=== PATIENT | male | born 1975 | race Caucasian/White ===

== ENCOUNTER 2020-10-11 05:48 | Emergency (ER) | payer OTHER ==
[2020-10-11] MEDS ORDERED: NA CHLORIDE 0.9% 1,000 ML ONE (07:19)
[2020-10-11] MEDS ORDERED: DIPHENHYDRAMINE 50 MG/ML VIAL ONE (07:19)
[2020-10-11] MEDS ORDERED: METOCLOPRAMIDE 10 MG/2mL INJ ONE (07:19)
[2020-10-11 07:26] LABS: Absolute Lymphocytes (CBC) 1.1 K/uL (0.7-4.9); Basophils % 0.9 % (0-1.3); Lymphocytes % 20.9 % (15.3-44.8); MPV 10.5 fL (7.6-11.3); RBC Red Blood Cell Count 5.17 M/uL (4.33-5.43)
[2020-10-11 07:39] LABS: ALT/SGPT 60 U/L (12-78); AST/SGOT 24 U/L (15-37); Alkaline Phosphatase 92 U/L (45-117); BUN Blood Urea Nitrogen 12 mg/dL (7-18); Bicarbonate 29 mmol/L (21-32); Bilirubin Direct < 0.1 mg/dL (0-0.2); Bilirubin Total 0.5 mg/dL (0.2-1.0); Glucose Level 96 mg/dL (74-106); Potassium 4.1 mmol/L (3.5-5.1); Sodium Level 142 mmol/L (136-145)
[2020-10-11 07:53] LABS: Protime INR 0.99
--- NOTE | 2020-10-11 08:03 | RAD REPORT ---
EXAM DESCRIPTION: CT - CTHCSPWOC - 10/11/2020 7:35 am CLINICAL HISTORY: PAIN COMPARISON: No comparisons TECHNIQUE: Axial 5 mm thick images of the head were obtained. Axial 2 mm thick images of the cervic al spine were obtained with sagittal and coronal reconstruction images generated and reviewed. All CT scans are performed using dose optimization technique as appropriate and may include automated exposure control or mA/KV adjustment according to patient size. FINDINGS: No intracranial hemorrhage, mass, edema or acute intracranial finding. No suspicion for ac pa infarction. No extra-axial fluid collections. Mastoid air cells, middle ears and paranasal sinuse s are clear. No external auditory canal abnormality seen. No globe or orbit abnormality seen. Cervical body height and alignment are normal. Mild disc space narrowing at C4-5 and C6-7. Posterior endplate spurring and uncovertebral joint hypertrophy changes are present at multiple levels. Foramin al stenosis changes are present at C3-4, C4-5, C6-7 and to a slightly lesser degree C5-6. Canal is bruce rderline stenotic spanning C4-C6. No fracture or acute bony abnormality. Central canal detail is inh erently limited. No paraspinal mass or hematoma. A few small nonspecific cervical lymph nodes are present. IMPRESSION: No intracranial abnormality seen. Mastoid air cells and middle ears are clear. Advanced for age cervical spine degenerative change with multilevel borderline spinal stenosis and mu ltilevel bony foraminal stenosis.
--- NOTE | 2020-10-11 08:38 | EDPHYS ---
Physician Documentation [facility] Name: Anjel Quintana Age: 45 yrs Sex: Male : 1975 Arrival Date: 10/11/2020 Time: 06:06 Bed 6 Private MD: ED Physician Indra Chacon HPI: 10/11 07:08 This 45 yrs old Male presents to ER via Ambulatory with complaints of Neck Injury. mh7 07:08 The patient or guardian complains of pain, that is acute. The symptoms are located at mh7 the neck. Onset: The symptoms/episode began/occurred 5 day(s) ago. Context: The problem was sustained at an unknown location, The neck injury/problem resulted from from unknown cause. Associated signs and symptoms: Pertinent positives: headache, nausea, photphobia. 07:09 Associated signs and symptoms: Pertinent positives: blurry vision, left ear pain, mh7 Pertinent negatives: chills, constipation, fever, bladder incontinence, bowel incontinence, numbness, tingling, vomiting, weakness. The pain radiates to the scalp. Modifying factors: The symptoms are alleviated by nothing. the symptoms are aggravated by movement. Severity of symptoms: At their worst the symptoms were moderate, 3 day(s) ago, in the emergency department the symptoms are unchanged. Historical: - Allergies: 06:09 No Known Allergies; jb4 - Home Meds: 06:09 Tessalon Perles Oral [Active]; jb4 - PMHx: 06:09 Traumatic Brain Injury; Migraines; jb4 - PSHx: 06:09 None; jb4 - Immunization history:: Adult Immunizations up to date. - Social history:: Smoking status: Patient denies any tobacco usage or history of. Patient/guardian denies using alcohol, street drugs. ROS: 07:09 Constitutional: Negative for fever, chills, and weight loss, Cardiovascular: Negative mh7 for chest pain, palpitations, and edema, Respiratory: Negative for shortness of breath, cough, wheezing, and pleuritic chest pain, Back: Negative for injury and pain, : Negative for injury, bleeding, discharge, and swelling, MS/Extremity: Negative for injury and deformity, Skin: Negative for injury, rash, and discoloration, Psych: Negative for depression, anxiety, suicide ideation, homicidal ideation, and hallucinations, Allergy/Immunology: Negative for hives, rash, and allergies, Endocrine: Negative for neck swelling, polydipsia, polyuria, polyphagia, and marked weight changes, Hematologic/Lymphatic: Negative for swollen nodes, abnormal bleeding, and unusual bruising. Exam: 07:09 Constitutional: This is a well developed, well nourished patient who is awake, alert, mh7 and in no acute distress. Head/Face: Normocephalic, atraumatic. Eyes: Pupils equal round and reactive to light, extra-ocular motions intact. Lids and lashes normal. Conjunctiva and sclera are non-icteric and not injected. Cornea within normal limits. Periorbital areas with no swelling, redness, or edema. ENT: Nares patent. No nasal discharge, no septal abnormalities noted. Tympanic membranes are normal and external auditory canals are clear. Oropharynx with no redness, swelling, or masses, exudates, or evidence of obstruction, uvula midline. Mucous membranes moist. 07:09 Chest/axilla: Normal chest wall appearance and motion. Nontender with no deformity. No lesions are appreciated. Cardiovascular: Regular rate and rhythm with a normal S1 and S2. No gallops, murmurs, or rubs. Normal PMI, no JVD. No pulse deficits. Respiratory: Lungs have equal breath sounds bilaterally, clear to auscultation and percussion. No rales, rhonchi or wheezes noted. No increased work of breathing, no retractions or nasal flaring. Abdomen/GI: Soft, non-tender, with normal bowel sounds. No distension or tympany. No guarding or rebound. No evidence of tenderness throughout. Back: No spinal tenderness. No costovertebral tenderness. Full range of motion. Skin: Warm, dry with normal turgor. Normal color with no rashes, no lesions, and no evidence of cellulitis. MS/ Extremity: Pulses equal, no cyanosis. Neurovascular intact. Full, normal range of motion. Neuro: Awake and alert, GCS 15, oriented to person, place, time, and situation. Cranial nerves II-XII grossly intact. Motor strength 5/5 in all extremities. Sensory grossly intact. Cerebellar exam normal. Normal gait. Psych: Awake, alert, with orientation to person, place and time. Behavior, mood, and affect are within normal limits. 07:09 Neck: External neck: tenderness, that is moderate, of the occiput, left mid cervical area and left trapezius, C-spine: appears grossly normal, no vertebral tenderness, no crepitus, Thyroid: appears normal, Trachea: is midline with no obvious abnormalities, ROM/movement: limited range of motion, that is mild, when rotating to the left, Meningeal signs: are not present, nuchal rigidity, is not appreciated, Lymph nodes: no appreciated lymphadenopathy. Vital Signs: 06:09 BP 134 / 106; Pulse 81; Resp 16; Temp 98.4(O); Pulse Ox 97% on R/A; Weight 95.25 kg jb4 (R); Height 6 ft. 2 in. (187.96 cm) (R); Pain 10/10; 07:30 BP 138 / 103; Pulse 82; Resp 15; Pulse Ox 100% on R/A; Pain 8/10; hb 08:30 BP 140 / 98; Pulse 80; Resp 16; Pulse Ox 99% on R/A; hb 06:09 Body Mass Index 26.96 (95.25 kg, 187.96 cm) jb4 MDM: 07:13 Transition of care: After a detail discussion of the patient's case, care is mh7 transferred to Loreto rCuz MD. 08:35 Differential diagnosis: arthritis, cervical strain, Osteoarthritis torticollis. Data ma2 reviewed: vital signs, nurses notes. Counseling: I had a detailed discussion with the patient and/or guardian regarding: the historical points, exam findings, and any diagnostic results supporting the discharge/admit diagnosis, the presence of at least one elevated blood pressure reading (>120/80) during this emergency department visit, the need for outpatient follow up. Response to treatment: the patient's symptoms have markedly improved after treatment. 08:37 Patient medically screened. ma2 10/11 06:52 Order name: CBC with Diff; Complete Time: 08:17 10/11 06:52 Order name: Basic Metabolic Panel; Complete Time: 08:17 10/11 06:52 Order name: Protime (+inr); Complete Time: 08:17 10/11 06:52 Order name: Ptt, Activated; Complete Time: 08:17 10/11 06:52 Order name: LFT's; Complete Time: 08:17 10/11 06:52 Order name: CT Head C Spine; Complete Time: 08:17 mh7 Administered Medications: 07:21 Drug: Benadryl (diphenhydrAMINE) 50 mg Route: IVP; Site: right antecubital; hb 08:08 Follow up: Response: No adverse reaction hb 07:22 Drug: Reglan (metoCLOPramide) 10 mg Route: IVP; Site: right antecubital; hb 08:09 Follow up: Response: No adverse reaction hb 07:23 Drug: NS 0.9% 1000 ml Route: IV; Rate: 1000 ml; Site: right antecubital; hb 08:40 Follow up: Response: No adverse reaction; IV Status: Completed infusion; IV Intake: hb 1000ml 08:45 Drug: [place] (HYDROcodone-acetaminophen) 10 mg-325 mg 1 tabs Route: PO; hb 08:46 Follow up: Response: Medication administered at discharge. hb Disposition: 10/11/20 08:37 Discharged to Home. Impression: Other cervical disc degeneration. - Condition is Stable. - Discharge Instructions: Degenerative Disk Disease. - Prescriptions for Cyclobenzaprine 10 mg Oral Tablet - take 1 tablet by ORAL route every 8 hours As needed; 30 tablet. Diclofenac Sodium 75 mg Oral Tablet Sustained Release - take 1 tablet by ORAL route 2 times per day; 30 tablet. - Medication Reconciliation Form, Thank You Letter, Antibiotic Education, Prescription Opioid Use form. - Follow up: Private Physician; When: Tomorrow; Reason: Continuance of care. Signatures: Dispatcher [employer] EDLA Rosie Faria RN RN Brain Goetz RN RN jb4 Loreto Cruz MD MD ma2 Indra Chacon MD MD mh7 Corrections: (The following items were deleted from the chart) 08:52 08:37 10/11/2020 08:37 Discharged to Home. Impression: Other cervical disc hb degeneration. Condition is Stable. Prescriptions for Cyclobenzaprine 10 mg Oral Tablet - take 1 tablet by ORAL route every 8 hours As needed; 30 tablet, Diclofenac Sodium 75 mg Oral Tablet Sustained Release - take 1 tablet by ORAL route 2 times per day; 30 tablet. and Forms are Medication Reconciliation Form, Thank You Letter, Antibiotic Education, Prescription Opioid Use. Follow up: Private Physician; When: Tomorrow; Reason: Continuance of care. ma2
--- NOTE | 2020-10-11 08:38 | ER ---
Nurse's Notes [facility] Name: Anjel Quintana Age: 45 yrs Sex: Male : 1975 Arrival Date: 10/11/2020 Time: 06:06 Bed 6 Private MD: Diagnosis: Other cervical disc degeneration Presentation: 10/11 06:09 Chief complaint: Patient states: I have had a crick in my neck since about Monday. jb4 Starting 2 days ago it began getting worse. I was just in the base of my neck to the base of my skull. Now it radiates to my left ear, to the top of my skull. I also have blurry vision and am feeling nauseous. 06:09 Coronavirus screen: Client denies travel out of the [place] in the last 14 days. At this jb4 time, the client does not indicate any symptoms associated with coronavirus-19. Ebola Screen: No symptoms or risks identified at this time. Initial Sepsis Screen: Does the patient meet any 2 criteria? No. Patient's initial sepsis screen is negative. Does the patient have a suspected source of infection? No. Patient's initial sepsis screen is negative. Risk Assessment: Do you want to hurt yourself or someone else? Patient reports no desire to harm self or others. Onset of symptoms was October 05, 2020. Transition of care: patient was not received from another setting of care. 06:09 Method Of Arrival: Ambulatory jb4 06:09 Acuity: GERTRUDIS 3 jb4 Historical: - Allergies: 06:09 No Known Allergies; jb4 - Home Meds: 06:09 Tessalon Perles Oral [Active]; jb4 - PMHx: 06:09 Traumatic Brain Injury; Migraines; jb4 - PSHx: 06:09 None; jb4 - Immunization history:: Adult Immunizations up to date. - Social history:: Smoking status: Patient denies any tobacco usage or history of. Patient/guardian denies using alcohol, street drugs. Screenin:09 Abuse screen: Denies threats or abuse. Nutritional screening: No deficits noted. jb4 Tuberculosis screening: No symptoms or risk factors identified. Fall Risk None identified. Assessment: 06:09 General: Appears in no apparent distress. uncomfortable, Behavior is calm, cooperative, jb4 appropriate for age, Pt given warm compress for his neck. Pain: Complains of pain in neck Pain radiates to left ear, top of head Pain currently is 10 out of 10 on a pain scale. Neuro: Level of Consciousness is awake, alert, obeys commands, Oriented to person, place, Director [employer] are equal bilaterally Full function Gait is steady, Speech is normal, Facial symmetry appears normal, Reports blurred vision headache photophobia. Cardiovascular: Patient's skin is warm and dry. Respiratory: Airway is compromised Respiratory effort is even, unlabored, Respiratory pattern is regular, symmetrical. GI: No signs and/or symptoms were reported involving the gastrointestinal system. : No signs and/or symptoms were reported regarding the genitourinary system. EENT: No signs and/or symptoms were reported regarding the EENT system. Derm: Skin is intact, Skin is pink, warm \T\ dry. Musculoskeletal: Circulation, motion, and sensation intact. Range of motion:. 07:15 Reassessment: Patient appears in no apparent distress at this time. Patient and/or hb family updated on plan of care and expected duration. Pain level reassessed. Patient is alert, oriented x 3, equal unlabored respirations, skin warm/dry/pink. 08:30 Reassessment: Patient appears in no apparent distress at this time. Patient and/or hb family updated on plan of care and expected duration. Pain level reassessed. Patient is alert, oriented x 3, equal unlabored respirations, skin warm/dry/pink. Vital Signs: 06:09 BP 134 / 106; Pulse 81; Resp 16; Temp 98.4(O); Pulse Ox 97% on R/A; Weight 95.25 kg [facility] (R); Height 6 ft. 2 in. (187.96 cm) (R); Pain 10/10; 07:30 BP 138 / 103; Pulse 82; Resp 15; Pulse Ox 100% on R/A; Pain 8/10; hb 08:30 BP 140 / 98; Pulse 80; Resp 16; Pulse Ox 99% on R/A; hb 06:09 Body Mass Index 26.96 (95.25 kg, 187.96 cm) [facility] ED Course: 06:06 Patient arrived in ED. am4 06:09 Arm band placed on right wrist. jb4 06:09 Patient has correct armband on for positive identification. Bed in low position. Call [facility] light in reach. Side rails up X 1. Pulse ox on. NIBP on. 06:12 Indra Chacon MD is Attending Physician. 7 06:23 Brain Goetz, RN is Primary Nurse. jb4 06:32 Triage completed. jb4 07:06 Missed attempt(s): 20 gauge Bleeding controlled, band aid applied, catheter tip intact. oe 07:12 Inserted saline lock: 20 gauge in right antecubital area, using aseptic technique. oe Blood collected. 07:35 CT Head C Spine In Process Unspecified. EDMS 08:51 No provider procedures requiring assistance completed. IV discontinued, intact, hb bleeding controlled, No redness/swelling at site. Administered Medications: 07:21 Drug: Benadryl (diphenhydrAMINE) 50 mg Route: IVP; Site: right antecubital; hb 08:08 Follow up: Response: No adverse reaction hb 07:22 Drug: Reglan (metoCLOPramide) 10 mg Route: IVP; Site: right antecubital; hb 08:09 Follow up: Response: No adverse reaction hb 07:23 Drug: NS 0.9% 1000 ml Route: IV; Rate: 1000 ml; Site: right antecubital; hb 08:40 Follow up: Response: No adverse reaction; IV Status: Completed infusion; IV Intake: hb 1000ml 08:45 Drug: [place] (HYDROcodone-acetaminophen) 10 mg-325 mg 1 tabs Route: PO; hb 08:46 Follow up: Response: Medication administered at discharge. hb Intake: 08:40 IV: 1000ml; Total: 1000ml. hb Outcome: 08:37 Discharge ordered by . juan 08:51 Discharged to home ambulatory, with family. hb 08:51 Condition: stable 08:51 Discharge instructions given to patient, Instructed on discharge instructions, follow up and referral plans. medication usage, Demonstrated understanding of instructions, follow-up care, medications, Prescriptions given X 2. 08:52 Patient left the ED. hb Signatures: Dispatcher [employer] EDMS Rosie Faria RN RN hb Bryson, James, RN RN jb4 Devin Lang oe Loreto Cruz MD MD ma2 Holmes, Maurice, MD MD [facility] Amy Pathak [facility] Corrections: (The following items were deleted from the chart) 06:35 06:09 Fall Risk jb4 jb4 07:12 07:11 Missed attempt(s): 20 gauge Bleeding controlled, band aid applied, catheter tip oe intact. oe
[2020-10-11 08:58] VITALS: TEMP 98.4
[2020-10-11 09:01] VITALS: BP 140/98; O2SAT 99
[2020-10-11] MEDS ORDERED: HYDROCODONE/APAP 10/325 TAB ONE (09:02)
== END 2020-10-11 08:52 | disposition home or self-care (01) ==
LOC: ER 05:48
DX: M50.323 Other cervical disc degeneration at C6-C7 level (principal); Z87.820 Personal history of traumatic brain injury
CPT/HCPCS: 85025; 80048; 36415; 85610; 80076; 85730; 70450; 72125; J2765; J1200; J7030; 96361; 96374; 96375; 99284

== ENCOUNTER 2020-10-26 14:39 | Emergency (ER) | payer OTHER ==
--- OUTSIDE RECORDS SUMMARY | 2020-10-26 14:50 | XMS REPORT | Continuity of Care Document ---
:1975 Author Organization [facility] t Address [address] [place] [address] Care Team Providers Name Role Phone Lab, Fam Pob I Attending Clinician Unavailable Provider, Urgent Care Attending Clinician Unavailable Niko Reynolds DO Attending Clinician Constance Cadet Attending Clinician Millie Ly PA-C Attending Clinician Manuel CHA, K.H. Attending Clinician Problems Condition Condition Condition Status Onset Resolution Last Treating Co mments Source Name Details Category Date Date Treatment Clinician Date Herpes Herpes Problem Active 2017-04 [place] simplex Simplex 2- Family 00:00: Practic 00 e Dyslipidem Dyslipidem Problem Active 2017-04 V illage ia ia 05-16 Family 00:00: Practic 00 e Herpes Herpes Problem Active [facility] zoster Zoster 3 Family 00:00: Practic 00 e Insomnia Insomnia Problem Active Bobby ge 3- Family 00:00: Practic 00 e Steatosis Steatosis Problem Active Chery jose j of liver of Liver 04-24 Family 00:00: Practic 00 e Body mass Body Mass Problem Active 2016-04 Chery jose j index Index - Family - - 00:00: Practic overweight Overweight 00 e Migraine Migraine Problem Active 2016-04 Bobby ge - Family 00:00: Practic 00 e Seasonal Seasonal Problem Active 2016-04 Bobby ge allergy Allergy 05-03 Family 00:00: Practic 00 e Gastroesop Gastroesop Problem Active 2016-04 V stephanie meza 1-10 Family reflux Reflux 00:00: Practic disease Disease 00 e without without esophagiti Esophagiti s s Allergies, Adverse Reactions, Alerts This patient has no known allergies or adverse reactions. Social History Smoking Status Start Date Stop Date Source Never Smoker [facility] P racluh Medications Ordered Filled Start Stop Current Ordering Indication Dosage Frequency Signature Comments Components Source Medication Medication Date Date Medication? Clinician (SIG) Name Name clindamycin clindamycin No 1capsul Q6H clindamyci [facility] HCl 300 mg HCl 300 mg e(s) n HCl 300 Family capsule capsule mg capsule Pra ctic Take 1 Take 1 Take 1 e capsule capsule capsule every 6 every 6 every 6 hours by hours by hours by oral route. oral route. oral route. sulfamethox sulfamethox No 1 Q12H sulfametho [facility] azole 800 azole 800 xazole 800 Family mg-trimetho mg-trimetho mg-trimeth Practic prim 160 mg prim 160 mg oprim 160 e tablet Take tablet Take mg tablet 1 tablet 1 tablet Take 1 every 12 every 12 tablet hours by hours by every 12 oral route. oral route. hours by oral route. zolpidem 10 zolpidem 10 No 1 zolpidem [facility] mg tablet mg tablet 10 mg Fami ly Take 1 Take 1 tablet Practic tablet as tablet as Take 1 e needed by needed by tablet as oral route oral route needed by at bedtime. at bedtime. oral route prn prn at insomnia insomnia bedtime. prn insomnia Immunizations Ordered Immunization Filled Immunization Date Status Commen ts Source Name Name influenza, influenza, 2018-03-16 [facility] injectable, injectable, 13:17:00 Practice quadrivalent quadrivalent Tdap Tdap 2012-04-24 [facility] 00:00:00 Practice Vital Signs Vital Name Observation Time Observation Value Comments Source BP Diastolic 2018-05-17 00:00:00 72 mm[Hg] [facility] Height 2018-05-17 00:00:00 74 [in_i] [facility] BMI (Body Mass 2018-05-17 00:00:00 26.8 kg/m2 [facility] Index) Practice BP Systolic 2018-05-17 00:00:00 127 mm[Hg] [facility] Body Weight 2018-05-17 00:00:00 208.8 [lb_av] [facility] BP Diastolic 2017-07-18 00:00:00 77 mm[Hg] [facility] Height 2017-07-18 00:00:00 74 [in_i] [facility] Practice BMI (Body Mass 2017-07-18 00:00:00 25.9 kg/m2 [facility] Family Index) Practice BP Systolic 2017-07-18 00:00:00 132 mm[Hg] [facility] Body Weight 2017-07-18 00:00:00 202 [lb_av] [facility] Practice BP Diastolic 2017-03-03 00:00:00 76 mm[Hg] [facility] Height 2017-03-03 00:00:00 74 [in_i] [facility] Practice BMI (Body Mass 2017-03-03 00:00:00 26.1 kg/m2 [facility] Family Index) Practice BP Systolic 2017-03-03 00:00:00 132 mm[Hg] [facility] Body Weight 2017-03-03 00:00:00 203 [lb_av] [facility] Procedures Procedure Date / Time Performed Performing Clinician Sourc e Vasectomy 2018-04-11 00:00:00 [facility] ly [facility] Foot/toes Surgery [facility] Procedure Practice Plan of Care Planned Activity Planned Date Details Comments Source Instructions [facility] Encounters Start End Encounter Admission Attending Care Care Encounter Source Date/Time Date/Time Type Type Clinicians Facility Department ID 2020-10-19 2020-10-19 Laboratory Lab, Adc [facility] [id number] 17:04:10 17:24:10 Only [facility] Pob I Health [id number] [place] [id number] Professio [phone] nal 0[address] 2020-10-06 2020-10-06 Urgent Provider, [facility] [id number] 13:14:11 13:34:11 [facility] [id number] Care [place] [id number] Professio [phone] nal 0[address] 2020-08-15 2020-08-15 Urgent Provider, [facility] [id number] 08:05:18 08:25:18 [facility] [id number] Care [place] [id number] Professio [phone] nal 044 [address] 2020-07-09 2020-07-09 Patient Rodolfo [facility] [id number] 00:00:00 00:00:00 Outreach [place] PRIMARY [id number] Niko [facility] [id number] PAVILLION [id number] 2020-05-09 2020-05-09 Urgent Carol [facility] [id number] 08:54:08 10:01:07 Care [facility] [id number] [place] [id number] Professio [phone] nal 044 [address] 2020-04-15 2020-04-15 Urgent Taryn Ly [id number] 18:44:51 18:59:51 Care Ali Pediatric [id number] s and [id number] Adult [phone] Primary [facility] 2020-03-16 2020-03-16 Office Manuel [facility] [id number] 08:56:23 09:37:09 Visit Kacey Breaux [id number] [place] [id number] Professio [phone] nal 059 [facility] 2018-05-17 2018-05-17 Jm Winter [facility] [place] - [id number] [facility] 00:00:00 00:00:00 MD Pneny: [facility] Famil y [address] [facility] [address] [place] [address] , Ph. 2017-07-18 2017-07-18 Jm GOMEZ [place] - [id number] [facility] 00:00:00 00:00:00 MD Penny: [facility] Famil y [address] [facility] [address], [place] [address] , Ph. 2017-03-03 2017-03-03 Jm GOMEZ [place] - [id number] [facility] 00:00:00 00:00:00 MD Penny: [facility] Famil y [address] [facility] Practice - [address], [facility] [place] [address] , Ph. Results Test Description Test Time Test Comments Results Result Comments Source Comprehensive metabolic 1999 panel - Serum or Plasma 2017-02 12:16:00 Test Item Value Reference Range Interpretation Comme nts ALT (test code = ALT) 34 U/L 0-55 AST (test code = AST) 26 U/L 5-34 BUN (test code = BUN) 15.2 mg/dL 8.9-20.6 alk phos (test code = alk phos) 62 unit/L 40-150 glucose (test code = glucose) 102 mg/dL 70-99 H albumin (test code = albumin) 4.1 g/dL 3.5-5.0 creatinine (test code = creatinine) 1.16 mg/dL 0.72-1.25 eGFR non- (test code = eGFR non- >60 >60 sammarinese) total bilirubin (test code = total bilirubin) 0.6 mg/dL 0.2-1.2 eGFR - (test code = eGFR - >60 >6 0 sammarinese) sodium (test code = sodium) 140 mEq/L 136-145 potassium (test code = potassium) 4.7 mEq/L 3.5-5.1 chloride (test code = chloride) 105 mmol/L 98-107 total protein (test code = total protein) 7.6 g/dL 6.4-8.3 calcium (test code = calcium) 9.6 mg/dL 8.4-10.2 CO2 (test code = CO2) 24.6 mmol/L 22.0-29.0 anion gap (test code = anion gap) 10 calc [facility] PracticeLipid 1995 panel - Serum or [id number] 12:16:00 Test Item Value Reference Range Interpretation Comments HDL (test code = HDL) 55 mg/dL 40-60 triglyceride (test code = 94 mg/dL 0-149 triglyceride) VLDL calc. (test code = VLDL calc.) 19 mg/dL cholesterol/HDL ratio (test code = 4.8 mg/dL cholesterol/HDL ratio) non-HDL cholesterol calc. (test 209 mg/dL 0-160 H code = non-HDL cholesterol calc.) cholesterol (test code = 264 mg/dL 0-199 H cholesterol) LDL calc. (test code = LDL calc.) 190 mg/dL 0-130 H [facility] Auto Differential panel - [id number] 17:32:00 Test Item Value Reference Range Interpretation Comments WBC (test code = WBC) 5.66 x10*3/?L 4.23-9.07 RBC (test code = RBC) 5.22 10*12/L 4.63-6.08 hemoglobin (test code = 16.90 g/dL 13.70-17.50 hemoglobin) hematocrit (test code = 50.6 % 40.1-51.0 hematocrit) MCV (test code = MCV) 96.9 fL 80.0-100.0 MCH (test code = MCH) 32.4 pg 25.7-32.2 H MCHC (test code = MCHC) 33.4 g/dL 32.3-36.5 RDW-SD (test code = RDW-SD) 45.5 fL 35.1-43.9 H platelet count (test code = 171.0 k/uL 163.0-337.0 platelet count) MPV (test code = MPV) 13.4 fL 7.5-11.5 H neut% (test code = neut%) 71.1 % 34.0-67.9 H lymph% (test code = lymph%) 19.3 % 21.8-53.1 L mon% (test code = mon%) 8.5 % 5.3-12.2 eos% (test code = eos%) 0.7 % 0.8-7.0 L baso% (test code = baso%) 0.4 % 0.2-1.2 neut# (test code = neut#) 4.0 x10*3/?L 1.8-5.4 lymph# (test code = lymph#) 1.1 x10*3/?L 1.3-3.6 L mon# (test code = mon#) 0.5 x10*3/?L 0.3-0.8 eos# (test code = eos#) 0.04 x10*3/?L 0.04-0.54 baso# (test code = baso#) 0.02 x10*3/?L 0.01-0.08 [facility]
--- NOTE | 2020-10-26 18:59 | ER ---
Nurse's Notes [facility] Name: Anjel Quintana Age: 45 yrs Sex: Male : 1975 Arrival Date: 10/26/2020 Time: 14:43 Bed Waiting Private MD: Diagnosis: Presentation: 10/26 15:06 Chief complaint: Patient states: Tested + last week, reports continued SOB, fever, [place], jl7 abdominal pains, and N/V/D. Coronavirus screen: Client denies travel out of the [place] in the last 14 days. cough unrelated to allergies, diarrhea, difficulty breathing, fatigue, fever, headache, muscle pain, nausea, shortness of breath, loss of taste or smell, Client presents with at least one sign or symptom that may indicate coronavirus-19. Standard/surgical mask placed on the client. Provider contacted for isolation considerations. Client reports previous positive COVID test result. Date of collection: October 19, 2020. Ebola Screen: No symptoms or risks identified at this time. Initial Sepsis Screen: Does the patient meet any 2 criteria? No. Patient's initial sepsis screen is negative. Does the patient have a suspected source of infection? No. Patient's initial sepsis screen is negative. Risk Assessment: Do you want to hurt yourself or someone else? Patient reports no desire to harm self or others. Onset of symptoms was October 19, 2020. Care prior to arrival: None. 15:06 Method Of Arrival: Ambulatory jl7 15:06 Acuity: GERTRUDIS 3 jl7 Historical: - Allergies: 15:09 No Known Allergies; jl7 - PMHx: 15:09 Migraines; traumatic brain injury; jl7 - PSHx: 15:09 None; jl7 - Immunization history:: Adult Immunizations up to date, Client reports having NOT received the Covid vaccine. - Social history:: Smoking status: Patient denies any tobacco usage or history of. Vital Signs: 15:06 BP 127 / 100; Pulse 108; Resp 19; Temp 98.5; Pulse Ox 97% on R/A; Weight 97.52 kg; Pain jl7 6/10; ED Course: 14:43 Patient arrived in ED. rg4 15:09 Triage completed. jl7 15:09 Arm band placed on right wrist. jl7 Administered Medications: No medications were administered Outcome: 18:58 Patient left the ED. jl7 Signatures: Ariana Rangel rg4 Keila Douglas RN RN jl7
[2020-10-26 19:03] VITALS: BP 127/100; TEMP 98.5; O2SAT 97
== END 2020-10-26 18:58 | disposition left against medical advice (07) ==
LOC: ER 14:39
DX: Z53.21 Procedure and treatment not carried out due to patient leaving prior to being seen by health care provider (principal)
CPT/HCPCS: 99281